=== PATIENT | male | born 1955 | race Two or more races ===

== ENCOUNTER 2022-02-20 12:23 | Inpatient (IN) | payer MEDICARE, OTHER ==
[2022-02-20] MEDS ORDERED: SODIUM CHLORIDE 1,000 ML IV STA (12:35)
[2022-02-20] MEDS ORDERED: dilTIAZem HCL 50 MG/10 ML - 10 ML VIAL IVPUSH ONE (12:45)
[2022-02-20] MEDS ORDERED: dilTIAZem HCL 125 MG/25 ML - 25 ML VIAL ONE (12:56)
[2022-02-20] MEDS ORDERED: HEPARIN NA (PORCINE) 5,000 UNITS/ML 1ML VIAL ONE (13:49)
[2022-02-20 13:53] LABS: BASO % 0.9 % (0-2.0); EOS % 3.2 % (0-4.5); HEMATOCRIT 45.9 % (35.4-49); HEMOGLOBIN 15.5 GM/dL (11.7-16.9); LYMPH % 25.9 % (8-40); MCH 31.7 pg (25.7-33.7); MCHC 33.7 g/dl (32.0-35.9); MEAN PLT VOLUME 9.4 fl (7.5-11.1); MONO % 13.4 % (3.8-10.2); NEUT % 56.6 % (42.8-82.8); PLATELET COUNT 187 10^3/uL (134-434); RBC 4.88 M/mm3 (4.00-5.60); RDW 14.5 % (11.9-15.9); WHITE BLOOD COUNT 8.5 K/mm3 (4.0-10.0)
[2022-02-20] MEDS ORDERED: SODIUM CHLORIDE 0.9% 500 ML INFUS.BAG IV ONE (13:54)
[2022-02-20 13:58] LABS: INR 1.04 (0.83-1.09)
[2022-02-20 14:01] LABS: ACTIVATED PTT 30.9 SECONDS (25.2-36.5)
[2022-02-20 14:09] LABS: CHLORIDE 102 mmol/L (98-107); SODIUM 138 mmol/L (136-145)
[2022-02-20 14:12] LABS: CALCIUM 8.7 mg/dL (8.5-10.1)
[2022-02-20 14:13] LABS: ALBUMIN 3.8 g/dl (3.4-5.0); ANION GAP 7 MMOL/L (8-16); BLOOD UREA NITROGEN 9.3 mg/dL (7-18); CO2 28 mmol/L (21-32); GLUCOSE,RANDOM 132 mg/dL (74-106); MAGNESIUM 2.2 mg/dL (1.8-2.4)
[2022-02-20 14:16] LABS: CREATININE 0.9 mg/dL (0.55-1.3); SGOT/AST 36 U/L (15-37); SGPT/ALT 47 U/L (13-61)
[2022-02-20 14:17] LABS: TOT PROT 7.3 g/dl (6.4-8.2)
[2022-02-20 14:18] LABS: BILIRUBIN,TOTAL 0.7 mg/dL (0.2-1)
[2022-02-20 14:19] LABS: ALK PHOS 58 U/L (45-117)
[2022-02-20] MEDS ORDERED: APIXABAN 5 MG TABLET ONE (18:06)
[2022-02-20] MEDS: APIXABAN 5 MG TABLET PO SCH (18:08)
[2022-02-20] MEDS ORDERED: ENOXAPARIN NA (PORCINE) 40 MG/0.4 ML DISP.SYRIN SQ SCH (20:30)
[2022-02-20] MEDS ORDERED: APIXABAN 5 MG TABLET PO SCH (22:00)
[2022-02-20] MEDS: dilTIAZem HCL 30 MG TABLET PO SCH (23:51)
[2022-02-21 00:38] VITALS: BMI 35.0
[2022-02-21] MEDS: dilTIAZem HCL 30 MG TABLET PO SCH ×3 (06:30→17:40)
[2022-02-21 07:56] LABS: HEMATOCRIT 40.4 % (35.4-49); HEMOGLOBIN 13.5 GM/dL (11.7-16.9); MCH 31.5 pg (25.7-33.7); MCHC 33.5 g/dl (32.0-35.9); MEAN CELL VOLUME 94.1 fl (80-96); PLATELET COUNT 146 10^3/uL (134-434); RDW 14.7 % (11.9-15.9); WHITE BLOOD COUNT 7.5 K/mm3 (4.0-10.0)
[2022-02-21 08:21] LABS: ANION GAP 8 MMOL/L (8-16); BLOOD UREA NITROGEN 8.2 mg/dL (7-18); CALCIUM 8.1 mg/dL (8.5-10.1); CHLORIDE 106 mmol/L (98-107); CO2 26 mmol/L (21-32); GLUCOSE,RANDOM 122 mg/dL (74-106); SODIUM 140 mmol/L (136-145)
[2022-02-21 08:25] LABS: CREATININE 0.8 mg/dL (0.55-1.3)
[2022-02-21 09:23] VITALS: RESP 18
[2022-02-21] MEDS: APIXABAN 5 MG TABLET PO SCH (09:40)
[2022-02-21 14:24] VITALS: BP 148/88; PULSE 79; TEMP 98.4
== END 2022-02-21 17:30 | disposition home or self-care (01) | DRG 282 ==
LOC: JER 12:23 → JERBED 17:31 → J4S 22:35
PROVIDERS: ADMIT Internal Medicine; ATTEND Family Medicine
DX: I48.92 Unspecified atrial flutter (principal); I21.A1 Myocardial infarction type 2; N40.0 Benign prostatic hyperplasia without lower urinary tract symptoms; E11.9 Type 2 diabetes mellitus without complications; E05.90 Thyrotoxicosis, unspecified without thyrotoxic crisis or storm; H05.20 Unspecified exophthalmos; G47.33 Obstructive sleep apnea (adult) (pediatric); H40.9 Unspecified glaucoma
CPT/HCPCS: 36415; 71045-TC-FY; 80048; 80053; 82550; 82553; 82962; 83036; 83735; 84439; 84443; 84481; 84484; 85025; 85027; 85610; 85730; 93005; 93010; 93306-TC; 99291; C9803-CS; U0003; U0005

== ENCOUNTER 2022-12-10 12:40 | Observation (INO) | payer MEDICARE, OTHER ==
[2022-12-10] MEDS ORDERED: ADENOSINE 6 MG/2 ML VIAL IVPUSH ONE ×3 (12:50→14:13)
[2022-12-10] MEDS ORDERED: dilTIAZem HCL 50 MG/10 ML - 10 ML VIAL IVPUSH ONE (13:29)
[2022-12-10] MEDS ORDERED: ASPIRIN 81 MG CHEWABLE TABLETS PO ONE (13:30)
[2022-12-10] MEDS ORDERED: dilTIAZem HCL 50 MG/10 ML - 10 ML VIAL ONE (13:32)
[2022-12-10] MEDS ORDERED: ASPIRIN 81 MG CHEWABLE TABLETS ONE (13:46)
[2022-12-10] MEDS ORDERED: dilTIAZem HCL 30 MG TABLET PO ONE (13:53)
[2022-12-10] MEDS ORDERED: dilTIAZem HCL 30 MG TABLET ONE (13:53)
[2022-12-10 14:03] LABS: BASO % 0.7 % (0-2.0); HEMATOCRIT 44.8 % (35.4-49); LYMPH % 24.3 % (8-40); MCH 31.3 pg (25.7-33.7); MCHC 33.5 g/dl (32.0-35.9); MEAN CELL VOLUME 93.3 fl (80-96); MEAN PLT VOLUME 11.4 fl (7.5-11.1); MONO % 10.4 % (3.8-10.2); NEUT % 59.6 % (42.8-82.8); PLATELET COUNT 117 10^3/uL (134-434); RDW 12.8 % (11.9-15.9)
[2022-12-10 14:07] LABS: INR 1.02 (0.83-1.09); PROTHROMBIN TIME (PATIENT) 11.8 SEC (9.7-13.0)
[2022-12-10 14:09] LABS: ACTIVATED PTT 28.9 SECONDS (25.2-36.5)
[2022-12-10] MEDS ORDERED: DEXAMETHASONE SOD PHOSPHATE 10 MG/1 ML VIAL ONE (14:13)
[2022-12-10 14:21] LABS: POTASSIUM 4.5 mmol/L (3.5-5.1)
[2022-12-10 14:24] LABS: ALBUMIN 3.6 g/dl (3.4-5.0)
[2022-12-10 14:25] LABS: BLOOD UREA NITROGEN 9.3 mg/dL (7-18); CALCIUM 8.9 mg/dL (8.5-10.1); MAGNESIUM 1.8 mg/dL (1.8-2.4)
[2022-12-10 14:28] LABS: BILIRUBIN,TOTAL 0.4 mg/dL (0.2-1); CREATININE 1.1 mg/dL (0.55-1.3)
[2022-12-10 14:29] LABS: TOT PROT 7.5 g/dl (6.4-8.2)
[2022-12-10] MEDS ORDERED: INSULIN REGULAR HUMAN 100 UNITS/ML *VIAL SQ ONE (14:41)
[2022-12-10] MEDS ORDERED: APIXABAN 5 MG TABLET PO ONE (14:59)
[2022-12-10] MEDS ORDERED: APIXABAN 5 MG TABLET ONE (15:11)
[2022-12-10] MEDS ORDERED: METOPROLOL TARTRATE 5 MG/5 ML VIAL IVPUSH PRN (16:10)
[2022-12-10 16:59] VITALS: BMI 35.5
[2022-12-10] MEDS: APIXABAN 5 MG TABLET PO SCH (22:14)
[2022-12-10] MEDS: dilTIAZem HCL 30 MG TABLET PO SCH (22:15)
[2022-12-11] MEDS: dilTIAZem HCL 30 MG TABLET PO SCH ×5 (00:56→23:50)
[2022-12-11 08:20] LABS: BASO % 0.5 % (0-2.0); EOS % 4.6 % (0-4.5); HEMATOCRIT 44.5 % (35.4-49); HEMOGLOBIN 14.5 GM/dL (11.7-16.9); LYMPH % 26.9 % (8-40); MCH 30.9 pg (25.7-33.7); MCHC 32.5 g/dl (32.0-35.9); MEAN PLT VOLUME 10.6 fl (7.5-11.1); MONO % 10.5 % (3.8-10.2); NEUT % 57.5 % (42.8-82.8); PLATELET COUNT 115 10^3/uL (134-434); RBC 4.68 M/mm3 (4.00-5.60); WHITE BLOOD COUNT 6.5 K/mm3 (4.0-10.0)
[2022-12-11 08:39] LABS: POTASSIUM 4.9 mmol/L (3.5-5.1)
[2022-12-11 08:45] LABS: BLOOD UREA NITROGEN 7.6 mg/dL (7-18); MAGNESIUM 2.1 mg/dL (1.8-2.4)
[2022-12-11 08:47] LABS: ALBUMIN 3.4 g/dl (3.4-5.0)
[2022-12-11 08:48] LABS: CREATININE 0.8 mg/dL (0.55-1.3)
[2022-12-11 08:49] LABS: BILIRUBIN,TOTAL 0.5 mg/dL (0.2-1)
[2022-12-11] MEDS: APIXABAN 5 MG TABLET PO SCH ×2 (10:15→21:45)
[2022-12-11] MEDS: FUROSEMIDE 40 MG/4 ML INJECTABLE VIAL IVPUSH SCH (10:15)
[2022-12-11] MEDS: INSULIN (LEVEMIR) 100 UNITS/ML UNITS SQ SCH ×2 (10:16→21:46)
[2022-12-11] MEDS ORDERED: INSULIN (NOVOLOG) ASPART 100 UNITS/ML 10ML VIAL ONE ×3 (11:35→21:19)
[2022-12-11] MEDS: INSULIN SLIDING SCALE (NOVOLOG) 1 VIAL SQ SCH ×3 (11:42→21:46)
[2022-12-12 05:48] VITALS: RESP 18
[2022-12-12] MEDS: dilTIAZem HCL 30 MG TABLET PO SCH ×2 (06:11→11:45)
[2022-12-12] MEDS: INSULIN SLIDING SCALE (NOVOLOG) 1 VIAL SQ SCH ×2 (06:12→11:46)
[2022-12-12] MEDS: INSULIN (LEVEMIR) 100 UNITS/ML UNITS SQ SCH (06:12)
[2022-12-12] MEDS: APIXABAN 5 MG TABLET PO SCH (09:45)
[2022-12-12] MEDS: FUROSEMIDE 40 MG/4 ML INJECTABLE VIAL IVPUSH SCH (09:45)
[2022-12-12 09:48] VITALS: BP 125/68; PULSE 70; TEMP 98
[2022-12-12] MEDS ORDERED: INSULIN (LEVEMIR) 100 UNITS/ML UNITS SQ SCH (11:22)
== END 2022-12-12 14:26 | disposition home or self-care (01) ==
LOC: JER 12:40 → UNDOADMOB 15:56 → INTOOBSV 15:56 → JERBED 15:56 → J4W 20:47 → JERBED 12-11 12:40 → J4W 12-11 12:40
PROVIDERS: ADMIT Family Medicine; ATTEND Family Medicine
PROC: 3E033GC Introduction of Other Therapeutic Substance into Peripheral Vein, Percutaneous Approach (ICD-10-PCS; principal; 2022-12-11)
PROC: 3E013VG Introduction of Insulin into Subcutaneous Tissue, Percutaneous Approach (ICD-10-PCS; 2022-12-11)
DX: I48.92 Unspecified atrial flutter (principal); I10 Essential (primary) hypertension; E11.9 Type 2 diabetes mellitus without complications; N40.0 Benign prostatic hyperplasia without lower urinary tract symptoms; G47.33 Obstructive sleep apnea (adult) (pediatric); E05.90 Thyrotoxicosis, unspecified without thyrotoxic crisis or storm; Z86.16 Personal history of COVID-19; Z99.89 Dependence on other enabling machines and devices
CPT/HCPCS: 36415; 71046-TC-FY; 80053; 80061; 82550; 82553; 82962; 83036; 83735; 84443; 84484; 85025; 85610; 85730; 93005; 93010; 93306-TC; 96372; 96374; 96375; 99285-25; G0378

== ENCOUNTER 2023-10-14 14:26 | Inpatient (IN) | payer MEDICARE, OTHER ==
[2023-10-14] MEDS ORDERED: dilTIAZem HCL 50 MG/10 ML - 10 ML VIAL ONE ×2 (14:47→16:52)
[2023-10-14] MEDS ORDERED: ADENOSINE 6 MG/2 ML VIAL IVPUSH ONE ×2 (15:03→15:31)
[2023-10-14] MEDS: ADENOSINE 6 MG/2 ML VIAL IVPUSH ONE ×2 (15:58)
[2023-10-14] MEDS: dilTIAZem HCL 50 MG/10 ML - 10 ML VIAL IVPUSH ONE (15:59)
[2023-10-14 16:03] LABS: BASO % 0.5 % (0-2.0); EOS % 4.6 % (0-4.5); HEMATOCRIT 40.3 % (35.4-49); HEMOGLOBIN 13.3 GM/dL (11.7-16.9); LYMPH % 25.3 % (8-40); MCH 31.9 pg (25.7-33.7); MCHC 33.1 g/dl (32.0-35.9); MEAN CELL VOLUME 96.4 fl (80-96); MONO % 12.3 % (3.8-10.2); NEUT % 57.3 % (42.8-82.8); PLATELET COUNT 217 10^3/uL (134-434); RBC 4.18 M/mm3 (4.00-5.60); RDW 14.4 % (11.9-15.9); WHITE BLOOD COUNT 6.1 K/mm3 (4.0-10.0)
[2023-10-14] MEDS ORDERED: dilTIAZem HCL 30 MG TABLET ONE (16:12)
[2023-10-14 16:30] LABS: POTASSIUM 5.3 mmol/L (3.5-5.1)
[2023-10-14 16:32] LABS: CALCIUM 8.6 mg/dL (8.5-10.1)
[2023-10-14 16:33] LABS: ALBUMIN 3.5 g/dl (3.4-5.0); BLOOD UREA NITROGEN 8.7 mg/dL (7-18)
[2023-10-14 16:36] LABS: CREATININE 0.9 mg/dL (0.55-1.3)
[2023-10-14 16:38] LABS: BILIRUBIN,TOTAL 0.8 mg/dL (0.2-1); TOT PROT 7.2 g/dl (6.4-8.2)
[2023-10-14 19:05] VITALS: BMI 35.0
[2023-10-14] MEDS: APIXABAN 5 MG TABLET PO SCH (21:53)
[2023-10-14 22:01] LABS: CALCIUM 8.5 mg/dL (8.5-10.1)
[2023-10-14 22:02] LABS: BLOOD UREA NITROGEN 8.2 mg/dL (7-18); MAGNESIUM 1.9 mg/dL (1.8-2.4)
[2023-10-14 22:05] LABS: CREATININE 0.8 mg/dL (0.55-1.3)
[2023-10-14] MEDS: BRIMONIDINE TARTRATE 0.2% OPHTHALMIC 5 ML BOTTLE OD SCH (23:12)
[2023-10-15 05:10] VITALS: RESP 18
[2023-10-15 07:48] LABS: BASO % 0.5 % (0-2.0); EOS % 4.7 % (0-4.5); HEMATOCRIT 37.6 % (35.4-49); LYMPH % 29.7 % (8-40); MCH 32.7 pg (25.7-33.7); MCHC 34.6 g/dl (32.0-35.9); MEAN CELL VOLUME 94.4 fl (80-96); MEAN PLT VOLUME 9.5 fl (7.5-11.1); MONO % 12.1 % (3.8-10.2); PLATELET COUNT 144 10^3/uL (134-434); RBC 3.98 M/mm3 (4.00-5.60); RDW 14.1 % (11.9-15.9); WHITE BLOOD COUNT 5.8 K/mm3 (4.0-10.0)
[2023-10-15 07:54] LABS: POTASSIUM 4.1 mmol/L (3.5-5.1)
[2023-10-15 07:57] LABS: CALCIUM 8.2 mg/dL (8.5-10.1)
[2023-10-15 07:58] LABS: BLOOD UREA NITROGEN 10.6 mg/dL (7-18)
[2023-10-15 08:01] LABS: CREATININE 0.8 mg/dL (0.55-1.3)
[2023-10-15] MEDS: METOPROLOL TARTRATE 5 MG/5 ML VIAL IVPUSH PRN (08:22)
[2023-10-15] MEDS: METOPROLOL TARTRATE 25 MG TABLET (FP) PO SCH (09:58)
[2023-10-15] MEDS: FUROSEMIDE 20 MG TABLET (FP) PO SCH (09:58)
[2023-10-15] MEDS ORDERED: DORZOLAMIDE 2% HCL OPHTHALMIC SOLUTION 10 ML BOTTLE OU SCH (10:00)
[2023-10-15] MEDS ORDERED: PATIENT'S OWN MEDICATION (NON-FORMULARY) (Dorzolamide Hcl/Timolol Maleat [Cosopt Eye Drops OD SCH (10:00)
[2023-10-15] MEDS: TIMOLOL 0.5% OPHTHALMIC SOL 5 ML BOTTLE OU SCH (10:07)
[2023-10-15] MEDS: TIMOLOL 0.5% OPHTHALMIC SOL 5 ML BOTTLE OD SCH (10:10)
[2023-10-15] MEDS: INSULIN ASPART SLIDING SCALE (NOVOLOG) 1 VIAL SQ SCH (11:33)
[2023-10-15] MEDS: DORZOLAMIDE 2% HCL OPHTHALMIC SOLUTION 10 ML BOTTLE OD SCH (13:23)
[2023-10-15] MEDS: ROSUVASTATIN CA 5 MG TABLET PO SCH (22:12)
[2023-10-15] MEDS: INSULIN (LEVEMIR) 100 UNITS/ML UNITS SQ SCH (22:25)
[2023-10-16 05:39] VITALS: TEMP 97.5
[2023-10-16 09:05] VITALS: BP 128/98
[2023-10-16 09:54] VITALS: PULSE 107
== END 2023-10-16 10:43 | disposition short-term general hospital (02) | DRG 310 ==
LOC: JER 14:26 → JERBED 17:05 → J4W 18:01
PROVIDERS: ADMIT Internal Medicine; ATTEND Family Medicine
DX: I48.92 Unspecified atrial flutter (principal); I50.9 Heart failure, unspecified; E05.90 Thyrotoxicosis, unspecified without thyrotoxic crisis or storm; I11.0 Hypertensive heart disease with heart failure; E11.9 Type 2 diabetes mellitus without complications; J44.9 Chronic obstructive pulmonary disease, unspecified; E78.5 Hyperlipidemia, unspecified; G47.33 Obstructive sleep apnea (adult) (pediatric); N40.0 Benign prostatic hyperplasia without lower urinary tract symptoms; E66.9 Obesity, unspecified; Z68.35 Body mass index [BMI] 35.0-35.9, adult
CPT/HCPCS: 0241U-QW; 36415; 71045-TC-FY; 80048; 80053; 82962; 83735; 84443; 84484; 85025; 93005; 93010; 93306-TC; 99285-25

== ENCOUNTER 2024-03-01 04:19 | Day surgery (SDC) | payer MEDICARE, OTHER ==
[2024-03-01] MEDS ORDERED: MIDAZOLAM HCL 2 MG/2 ML SINGLE DOSE VIAL ONE (07:18)
[2024-03-01] MEDS ORDERED: PROPOFOL 20 ML ONE ×2 (07:19→08:27)
[2024-03-01] MEDS ORDERED: LIDOCAINE HCL 1%, 10 MG/ML (20ML VIAL) ONE (07:26)
[2024-03-01] MEDS ORDERED: GENTAMICIN SO4 80 MG/2 ML VIAL ONE (07:27)
[2024-03-01] MEDS ORDERED: BUPIVACAINE HCL/PF 0.5% (5MG/ML) 10 ML VIAL ONE (07:27)
[2024-03-01] MEDS: ceFAZolin SODIUM 1 GM VIAL IVPB ONE (07:45)
[2024-03-01] MEDS: BUPIVACAINE HCL/PF 0.5% (5MG/ML) 10 ML VIAL IJ ONE (07:49)
[2024-03-01] MEDS: LIDOCAINE HCL 1%, 10 MG/ML (20ML VIAL) INF ONE (07:49)
[2024-03-01] MEDS ORDERED: ceFAZolin SODIUM 1 GM VIAL ONE (07:54)
[2024-03-01] MEDS: GENTAMICIN SO4 80 MG/2 ML VIAL IVPB ONE ×2 (08:28)
[2024-03-01] MEDS: LIDOCAINE HCL 1%, 10 MG/ML (20ML VIAL) NR ONE (08:50)
[2024-03-01] MEDS ORDERED: ALBUTEROL SO4 HFA INHALER IH PRN (11:35)
[2024-03-01 11:44] VITALS: RESP 18; BMI 76.8
[2024-03-01 12:26] LABS: BASO % 0.7 % (0-2.0); EOS % 7.6 % (0-4.5); HEMATOCRIT 35.7 % (35.4-49); HEMOGLOBIN 12.4 GM/dL (11.7-16.9); MCHC 34.7 g/dl (32.0-35.9); MEAN CELL VOLUME 92.1 fl (80-96); MEAN PLT VOLUME 9.8 fl (7.5-11.1); MONO % 11.6 % (3.8-10.2); NEUT % 47.1 % (42.8-82.8); PLATELET COUNT 113 10^3/uL (134-434); RBC 3.88 M/mm3 (4.00-5.60); RDW 13.5 % (11.9-15.9); WHITE BLOOD COUNT 5.6 K/mm3 (4.0-10.0)
[2024-03-01 12:33] LABS: POTASSIUM 4.6 mmol/L (3.5-5.1)
[2024-03-01 12:35] LABS: ALBUMIN 3.6 g/dl (3.4-5.0); BLOOD UREA NITROGEN 10.3 mg/dL (7-18); CALCIUM 8.7 mg/dL (8.5-10.1)
[2024-03-01 12:39] LABS: CREATININE 0.8 mg/dL (0.55-1.3)
[2024-03-01 12:40] LABS: BILIRUBIN,TOTAL 0.5 mg/dL (0.2-1); TOT PROT 6.8 g/dl (6.4-8.2)
[2024-03-01] MEDS: METOPROLOL TARTRATE 25 MG TABLET (FP) PO SCH (21:32)
[2024-03-01] MEDS: ROSUVASTATIN CA 20 MG TABLET PO SCH (21:32)
[2024-03-01] MEDS: DORZOLAMIDE 2% HCL OPHTHALMIC SOLUTION 10 ML BOTTLE OD SCH (21:35)
[2024-03-01] MEDS: TIMOLOL 0.5% OPHTHALMIC SOL 5 ML BOTTLE OD SCH (21:40)
[2024-03-01] MEDS: BRIMONIDINE TARTRATE 0.2% OPHTHALMIC 5 ML BOTTLE OD SCH (21:41)
[2024-03-02] MEDS: APIXABAN 5 MG TABLET PO SCH (09:24)
[2024-03-02] MEDS: FUROSEMIDE 20 MG TABLET (FP) PO SCH (09:24)
[2024-03-02 09:38] VITALS: BP 136/78; PULSE 62; TEMP 97.9
[2024-03-02 10:05] LABS: BASO % 0.8 % (0-2.0); EOS % 7.2 % (0-4.5); HEMATOCRIT 40.7 % (35.4-49); HEMOGLOBIN 13.8 GM/dL (11.7-16.9); LYMPH % 25.7 % (8-40); MCH 31.4 pg (25.7-33.7); MEAN CELL VOLUME 92.4 fl (80-96); MEAN PLT VOLUME 9.6 fl (7.5-11.1); MONO % 10.1 % (3.8-10.2); NEUT % 56.2 % (42.8-82.8); PLATELET COUNT 121 10^3/uL (134-434); RDW 13.3 % (11.9-15.9); WHITE BLOOD COUNT 7.3 K/mm3 (4.0-10.0)
[2024-03-02 10:19] LABS: POTASSIUM 4.6 mmol/L (3.5-5.1)
[2024-03-02 10:21] LABS: ALBUMIN 3.9 g/dl (3.4-5.0); CALCIUM 9.1 mg/dL (8.5-10.1)
[2024-03-02 10:22] LABS: BLOOD UREA NITROGEN 9.9 mg/dL (7-18)
[2024-03-02 10:25] LABS: CREATININE 0.8 mg/dL (0.55-1.3)
[2024-03-02 10:26] LABS: TOT PROT 7.4 g/dl (6.4-8.2)
== END 2024-03-02 11:40 | disposition home or self-care (01) ==
LOC: SUATTDRO 04:19 → JASU-SURG 04:19 → JASUSAT 04:19 → J6S 11:18 → JASUSAT 03-02 11:40
PROVIDERS: ATTEND Internal Medicine
PROC: 0JBQ0ZX Excision of Right Foot Subcutaneous Tissue and Fascia, Open Approach, Diagnostic (ICD-10-PCS; principal; 2024-03-01 07:30)
DX: M67.471 Ganglion, right ankle and foot (principal)
CPT/HCPCS: 36415; 73630-TC-RT-FY; 80053; 82962; 83036; 85025; 87070; 87075; 87186; 87205; 88309-TC; 94760; 97116-GP